=== PATIENT | female | born 1955 | race Caucasian/White ===

== ENCOUNTER 2017-01-04 14:25 | Emergency (ER) | payer MEDICARE, MEDICAID ==
[2017-01-04 14:48] VITALS: BP 131/86
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
== END 2017-01-04 15:35 | disposition home or self-care (01) ==
LOC: ER 14:25
DX: S50.11XA Contusion of right forearm, initial encounter (principal); W20.8XXA Other cause of strike by thrown, projected or falling object, initial encounter; Y93.E9 Activity, other interior property and clothing maintenance; Y92.009 Unspecified place in unspecified non-institutional (private) residence as the place of occurrence of the external cause; F41.9 Anxiety disorder, unspecified; J44.9 Chronic obstructive pulmonary disease, unspecified

== ENCOUNTER 2017-02-20 13:12 | Emergency (ER) | payer MEDICARE, MEDICAID ==
[2017-02-20 13:12] VITALS: BP 131/86
--- OUTSIDE RECORDS SUMMARY | 2017-02-20 13:19 | XMS REPORT | Continuity of Care Document ---
:1955 Author Organization [facility] ([facility]) Address [address] [place] [address] Phone [phone] Care Team Providers Name Role Phone Macy Cortez Primary Care Provider [phone] Source Comments This disclosure is being made pursuant to the Care Everywhere program, applicable federal and state laws, and may not contain all informaitonavailable regarding this patient.[facility] ([facility]) Active Allergies and Adverse Reactions No Active Allergies Current Medications Not on file Active Problems Problem Noted Date Trigger finger (acquired) 03/02/2005 Most Recent Encounters Date Type Specialty Providers Description 02/20/2017 Lab Requisition Pathology [facility], [facility] Dx: Neoplasm of breast Social History Tobacco Use Types Packs/Day Years Used Date Never Assessed Last Filed Vital Signs Vital Sign Reading Time Taken Blood Pressure - - Pulse - - Temperature - - Respiratory Rate - - Height 1.58 m (5' 2.2") 03/02/2005 2:00 PM CDT Weight 79.996 kg (176 lb 5.8 oz) 03/02/2005 2:00 PM CDT Body Mass Index 32.04 03/02/2005 2:00 PM CDT Oxygen Saturation - - Plan of Care Health Maintenance Due Date Last Done Comments HCV Screening 1955 Hepatitis B Vaccine (1 of 3 - Primary Series) 1955 Tdap Vaccine 1966 Lipid Disorder Screening 1973 Td Vaccine 1973 Cervical Cancer Screening 1985 Mammogram 1995 Colonoscopy 10/26/2005 Zoster Vaccine 2015 Influenza Vaccine: Seasonal (#1) 06/29/2016 Results from Last 3 Months Not on file
--- OUTSIDE RECORDS SUMMARY | 2017-02-20 13:19 | XMS REPORT | Summary of Care ---
:1955 Author Organization [facility] Address [address] [place] [address] Care Team Providers Name Role Phone Penny Campos Primary Care Physician Encounter Date(s): 01/07/17 - 01[facility]07/17 [facility], [address] [place], [place] [address] Discharge Disposition: 01 Discharged to Home or Self Care Attending Physician: AZEEM Melton Vital Signs No data available for this section Problem List No data available for this section Allergies, Adverse Reactions, Alerts Substance Reaction Severity Status Cipro imbalance Active Midrin imbalance Active Vicodin imbalance Active Medications ALPRAZolam 0.5 mg oral tablet 1 tab(s), Oral, TID, PRN for anxiety, 0 Refill(s), Start Date: 09/02/15 8:25:00 CDT Start Date: 09/02/15 Status: OrderedDaliresp 500 mcg oral tablet 1 tab(s), Oral, Daily, # 30 tab(s), 1 Refill(s), Start Date: 09/02/15 9:42:00 CDT, Pharmacy: [facility] [place], [place] Start Date: 09/02/15 Stop Date: 12/11/16 Status: Discontinuedlisinopril 10 mg oral tablet 1 tab(s), Oral, Daily, 0 Refill(s), Start Date: 09/02/15 8:25:00 CDT Start Date: 09/02/15 Status: OrderedoxyCODONE-acetaminophen 5 mg-325 mg oral tablet 1 tab(s), Oral, q6hr interval, PRN pain severe 8-10, 0 Refill(s), Start Date: 8:25:00 CDT Start Date: 09/02/15 Status: Orderedpantoprazole 20 mg oral delayed release tablet 1 tab(s), Oral, Daily, 0 Refill(s), Start Date: 09/02/15 8:26:00 CDT Start Date: 09/02/15 Status: OrderedProAir HFA 2 puff(s), Inhale, QID, PRN as needed for wheezing, 0 Refill(s), Start Date: 04/12 8:26:00 CDT Start Date: 09/02/15 Status: Orderedranitidine 150 mg oral tablet 1 tab(s), Oral, HS, 0 Refill(s), Start Date: 09/02/15 8:26:00 CDT Start Date: 09/02/15 Status: OrderedSpiriva Respimat 2.5 mcg/inh inhalation aerosol 2 puff(s), Inhale, Daily, # 1 EA, 3 Refill(s), Start Date: 12/11/16 13:57:15 DIRECTOR OF LAND ACQUISITION , Samples: 1, Pharmacy: [place], [place], [id number], 07/29/17 Start Date: 12/11/16 Stop Date: 04/10/17 Status: OrderedSpiriva Respimat 60 inhalation aerosol 2 puff(s), Inhale, Daily, # 1 EA, 3 Refill(s), Start Date: 09/02/15 9:42:00 CDT , Samples: 1, Pharmacy: [place], [place], [id number], 07/29/17 Start Date: 09/02/15 Stop Date: 12/11/16 Status: DiscontinuedSymbicort 160 mcg-4.5 mcg/inh inhalation aerosol 2 puff(s), Inhale, BID, 0 Refill(s), Start Date: 09/02/15 8:26:00 CDT Start Date: 09/02/15 Status: Ordered Results No data available for this section Immunizations No data available for this section Procedures No data available for this section Social History No data available for this section Assessment and Plan No data available for this section
--- OUTSIDE RECORDS SUMMARY | 2017-02-20 13:19 | XMS REPORT | Summary of Care ---
:1955 Author Organization [facility] Address [address] [place] [address] Care Team Providers Name Role Phone Penny Campos Primary Care Physician Encounter Date(s): 12/11/16 - 12/11/16 [facility], [address] [place], [place] [address] Discharge Diagnosis: Acute exacerbation of COPD Discharge Diagnosis: Solitary pulmonary nodule Discharge Disposition: 01 Discharged to Home or Self Care Attending Physician: AZEEM Melton Referring Physician: Macy Cortez MD Vital Signs Most recent to oldest [Reference Range]: 1 Temperature Tympanic [36.6-38.1 DegC] 37.4 DegC (12/11/16 1:29 PM) Temperature C to F 99.3 (12/11/16 1:29 PM) Peripheral Pulse Rate [60-100 bpm] 86 bpm (12/11/16 1:29 PM) Respiratory Rate [12-20 br/min] 14 br/min (12/11/16 1:29 PM) SpO2 95 % (12/11/16 1:29 PM) SpO2 Location Right hand (12/11/16 1:29 PM) Blood Pressure [90-130/60-90 mmHg] 124/68mmHg (12/11/16 1:29 PM) Mean Arterial Pressure, Cuff 87 mmHg (12/11/16 1:29 PM) Height/Length Measured 157.48 cm (12/11/16 1:29 PM) Weight Dosing 77.10 kg1 (12/11/16 1:31 PM) Weight Measured 77.1 kg (12/11/16 1:29 PM) BSA Measured 1.78 m2 (12/11/16 1:29 PM) Body Mass Index Measured 31.09 kg/m2 (12/11/16 1:29 PM) 1Result Comment: This result was because the dosing weight was either not entered or it is>30 days old. This result is based off: Weight Measured December 11, 2016 13:29:00 [employer] by Norbert Hernandez Problem List No data available for this [...] Refill(s), Start Date: 09/02/15 9:42:00 CDT, Pharmacy: [place], [place] Start Date: 09/02/15 Stop Date: 12/11/16 [...] 09/02/15 8:26:00 CDT Start Date: 09/02/15 Status: OrderedSolumedrol (office) 62.5 mg, IM, ONETIME, First Dose: 12/11/16 14:23:00 [employer], Stop Date: 12/11/16 14: 23:00 [employer], Diagnosis: Acute exacerbation of COPD Start Date: 12/11/16 Stop Date: 12/11/16 Status: CompletedSpiriva Respimat 2.5 mcg/inh inhalation aerosol 2 puff(s), Inhale, Daily, # 1 EA, 3 Refill(s), Start Date: 12/11/16 13:57:15 [employer] , Samples: 1, Pharmacy: [place], [place], [id number], 07/29/17 Start Date: 12/11/16 Stop Date: 04/10/17 Status: OrderedSpiriva Respimat 60 inhalation aerosol 2 puff(s), Inhale, Daily, # 1 EA, 3 Refill(s), Start Date: 09/02/15 9:42:00 CDT , Samples: 1, Pharmacy: [place], [place], [id number], 07/29/17 Start Date: 09/02/15 Stop Date: 12/11/16 [...]
== END 2017-02-20 13:24 | disposition home or self-care (01) ==
LOC: ER 13:12
DX: Z13.6 Encounter for screening for cardiovascular disorders (principal)

== ENCOUNTER 2017-07-22 07:03 | Day surgery (SDC) | payer MEDICARE, MEDICAID ==
[~2017-07-22 07:03] MED LIST: ACETAMINOPHEN 500 MG TABLET PO PRN; HYDROmorphone HCL 2 MG/ML VIAL IV PRN; MAG HYDROX/ALUMINUM HYD/SIMETH 30 ML UDC PO PRN; MAGNESIUM HYDROXIDE 30 ML UDC PO PRN; ONDANSETRON HCL/PF 2 MG/ML VIAL IV PRN; PROMETHAZINE HCL 25 MG in DEXTROSE 5 % IN WATER 50 ML IV PRN; RINGER'S SOLUTION,LACTATED 1,000 ML IV PRN; ZOLPIDEM TARTRATE 5 MG TABLET PO PRN; ceFAZolin SODIUM 1 GM VIAL IV PRN; diphenhydrAMINE HCL 50 MG/ML VIAL IV PRN; oxyCODONE HCL/ACETAMINOPHEN 1 TAB TABLET PO PRN
[2017-07-22] MEDS ORDERED: RINGER'S SOLUTION,LACTATED 1,000 ML IV ONE (07:45)
[2017-07-22] MEDS ORDERED: BUPIVACAINE HCL 50 ML VIAL IJ ONE (08:25)
[2017-07-22 09:39] VITALS: BP 125/74
--- NOTE | 2017-07-22 09:42 | OR ---
Operative Report - Dictated Report Narrative: Date: 07/22/2017 Physician: Barry Garcia M.D. In File Operator: Sohail Mendez PA-C Preoperative diagnosis: Right Carpal tunnel syndrome Postoperative diagnosis: Right Carpal tunnel syndrome Procedure: Revision open right carpal tunnel release Anesthesia: Rony block Complications: None Estimated blood loss: Minimal Tourniquet time: 25 Minutes at 275 mmHg Specimens: None Retained implants: None Drains: None Indications: Deborah Is a 61 year-old female who has been followed in my clinic with complaints of carpal tunnel syndrome. She had a previous endoscopic release about 15 years ago with initial improvement but a progressive return of her symptoms. Physical exam as well as diagnostic testing showed compression of the median nerve compatible with carpal tunnel syndrome. Conservative measures have failed including but not limited to activity modification, medications, and /or bracing. The risks, benefits, and alternatives were discussed in clinic. The risks being bleeding, infection, nerve, tendon, blood vessel injury, persistent pain, wound complications, weakness, palm pain, need for additional procedures, and persistent symptoms. Consent was obtained in the clinic. Procedure: After marking the correct extremity in the preoperative holding area, a timeout was performed in the operating room. IV antibiotics consisting of 2 g of Ancef were administered prior to the procedure. A well-padded tourniquet was applied to the operative upper arm. The arm was exsanguinated and the tourniquet was inflated to 275 mmHg. Rony block was then performed by the anesthesia provider without complication. Using Loupe magnification, a longitudinal incision was made in line with the longitudinal hypothenar crease, or approximately in line with the ring finger, from just distal to the wrist flexion crease and extending approximately 2.5 cm distally. Blunt dissection and hemostasis with bipolar cautery was carried out through the subcutaneous tissue and palmar fascia down to the level of the transverse carpal ligament. Ragnel retractors were used to retract the surrounding soft tissue and provide good visualization of the transverse carpal ligament. Inspection revealed a completely intact transverse carpal ligament indicating incomplete previous endoscopic release. The transverse carpal ligament was then sharply incised longitudinally with a 15 -blade scalpel. A Monument elevator was then slid underneath the transverse carpal ligament distally, protecting the median nerve, and the remaining distal portion of the transverse carpal ligament was sharply divided. This was then repeated proximally to divide the remaining proximal portion. Tenotomy scissors were used to divide any remaining transverse carpal ligament and palmar fascia distally being careful to avoid the superficial palmar arch. The distal forearm fascia was released ensuring that the median nerve was completely decompressed utilizing tenotomy scissors. The median nerve was then carefully inspected. Once it was felt that all the tissues overlying the median nerve were completely released, the wounds were thoroughly irrigated with saline. Tourniquet was deflated and hemostasis was obtained with pressure as well as bipolar cautery. Once bleeding had resolved and there was no excessive bleeding, the wounds were closed with interrupted 4-0 nylon. Xeroform , 4 x 4's, soft roll, and a well-padded dorsal short arm wrist splint was applied. The patient was awoken and transferred to the post-anesthesia care unit in stable condition. All sponge, needle, blade, and instrument counts were correct prior to closing the wounds. Additional 0.5% Marcaine without epinephrine was infused into the skin edges for pain control.
[2017-07-22] MEDS ORDERED: SENNOSIDES/DOCUSATE SODIUM 1 TAB TABLET PO SCH (21:00)
== END 2017-07-22 07:04 | disposition home or self-care (01) ==
LOC: AMB 07:03
PROVIDERS: ATTEND Orthopaedic Surgery
PROC: 01N50ZZ Release Median Nerve, Open Approach (ICD-10-PCS; principal; 2017-07-22 08:00)
DX: G56.01 Carpal tunnel syndrome, right upper limb (principal); I10 Essential (primary) hypertension; J45.20 Mild intermittent asthma, uncomplicated; J44.9 Chronic obstructive pulmonary disease, unspecified; K21.9 Gastro-esophageal reflux disease without esophagitis; Z87.891 Personal history of nicotine dependence; Z68.30 Body mass index [BMI] 30.0-30.9, adult

== ENCOUNTER 2020-04-03 15:51 | Inpatient (IN) ==
[2020-04-03] MEDS ORDERED: MORPHINE SULFATE 10 MG PO PRN (16:27)
[2020-04-03] MEDS ORDERED: ONDANSETRON HCL/PF 2 MG/ML VIAL IV PRN (16:32)
[2020-04-03] MEDS ORDERED: SCOPOLAMINE HYDROBROMIDE 1.5 MG PATC TD ONE ×2 (16:32→19:47)
[2020-04-03] MEDS ORDERED: POLYVINYL ALCOHOL 150 DROP BTL EACHEYE PRN (16:32)
[2020-04-03] MEDS ORDERED: BISACODYL 10 MG SUPP.RECT RC PRN (16:32)
[2020-04-03] MEDS ORDERED: ALBUTEROL SULFATE/IPRATROPIUM 3 ML NEBU IH PRN (16:32)
[2020-04-03] MEDS ORDERED: POLYETHYLENE GLYCOL 3350 17 GM PACKET PO PRN (16:35)
[2020-04-03] MEDS ORDERED: ACETAMINOPHEN 500 MG TABLET PO PRN (16:35)
[2020-04-03] MEDS ORDERED: MINERAL OIL 1 ENEMA BTL RC PRN (16:41)
[2020-04-03] MEDS ORDERED: SENNOSIDES 8.6 MG TABLET PO PRN (16:42)
--- NOTE | 2020-04-03 16:45 | HP ---
Chief Complaint - Chief Complaint Date of Service: 04/03/20 Time of Service: 16:44 Chief Complaint: breast cancer, restlessness History of Present Illness: Patient is currently receiving hospice benefits for end-stage breast cancer. She has been increasingly restless at home, which is very difficult for her daughter to handle. Daughter is trying to manage her needs alone, but her needs are more than she can provide. She was admitted for hospice respite. Her hospice nurse today also feels like she has actively dying. Since she may pass within 24 hours, she is admitted for hospice care. Medical History (Last Reviewed 04/03/20 @ 16:37 by Isis Phillips RN) Wrist pain, right (Acute) Weight loss (Acute) Upper respiratory infection (Acute) Trigger little finger of right hand (Acute) Patient presents for trigger fingers of her right little finger, left index finger. Patient has received prior injections with relief, would like to proceed with injections today. Discussed conservative versus surgical tr eatment. Patient agreed to continue with injections as long as they get relief. Patient received injections in her right little finger and left index finger. Both fingers actively trigger with flexion. Patient will continue activity as tolerated. She can call for follow-up as needed for continued injections versus surgical intervention. If any acute changes occur patient will return. Trigger index finger of left hand (Acute) Tobacco abuse (Acute) Shortness of breath (Acute) Neck pain (Acute) Headache (Acute) GERD (gastroesophageal reflux disease) (Acute) Flexor tenosynovitis of thumb (Acute) Essential hypertension (Acute) Cough (Acute) COPD (chronic obstructive pulmonary disease) with acute bronchitis (Acute) Mastodynia of left breast (Acute) Breast cancer (Acute) Onset Date: ~03/10/17 Bilateral carpal tunnel syndrome (Acute) Back pain (Acute) Asthma (Acute) Onset Date: ~11/28/13 Anxiety disorder (Acute) Anemia (Acute) Onset Date: ~10/1999 Colonoscopy refused Surgical History: Surgical History (Last Reviewed 04/03/20 @ 16:37 by Isis Phillips RN) H/O: hysterectomy Onset Date: ~2002 History of carpal tunnel release Onset Date: ~07/22/[address] Garcia Family History: Family History (Last Reviewed 03/14/20 @ 13:01 by Lida Hendrix CMA) Father , age 51 Myocardial infarction Mother , age 71 Agoraphobia with panic attacks Son Methamphetamine addiction Social History: (Last Reviewed 04/03/20 @ 16:37 by Isis Phillips RN) Social History: Marital status: Unknown lives independently: Yes household members: other current occupational status: disabled Highest education level completed: some college, no degree Service: No Tobacco: Smoking Status: Never smoker Alcohol: alcohol intake: former Substance Use: substance use type: does not use Dietary Habits: caffeine: Yes Type: coffee Review Of Systems (GEN) - Review of Systems Generalized/Overall Review: Present: No Symptoms Reported - Unable to obtain ROS due to mentation Immunizations: IMMUNIZATION HX Immunizations Up to Date Yes History of Influenza Vaccine No Hx Pneumococcal Vaccination No Allergies/Adverse Reactions: Allergies Allergy/AdvReac Type Severity Reaction Status Date / Time sumatriptan Allergy Severe "CAUSES Verified 04/03/20 16:41 THROAT TO CLOSE" sulfamethoxazole Allergy Intermediate INCREASED Verified 04/03/20 16:41 [From Bactrim] SOB doxycycline Allergy Mild Hives Verified 04/03/20 16:41 ciprofloxacin HCl AdvReac Mild Nausea Verified 04/03/20 16:41 [From Cipro] dichloralphenazone AdvReac Mild "FUZZY" Verified 04/03/20 16:41 [From MIDRIN] HEAD hydrocodone AdvReac Mild DIZZINESS Verified 04/03/20 16:41 tramadol AdvReac Mild N/V Verified 04/03/20 16:41 azithromycin [From Zithromax] AdvReac DOESNT WORK Verified 04/03/20 16:41 Home Medications: HOME MEDICATIONS Acetaminophen [Tylenol] 500 mg PO Q6H PRN 02/28/20 [Last Taken Unknown] Budesonide/Formoterol Fumarate [Symbicort] 2 puff INHALATION BID 02/28/20 [Last Taken Unknown] Pantoprazole Sodium 40 mg PO DAILY 02/28/20 [Last Taken Unknown] apixaban 5 mg tablet 5 mg PO BID 03/14/20 [Last Taken Unknown] polyethylene glycol 3350 17 gram oral powder packet 17 g PO DAILY PRN 03/14/20 [Last Taken Unknown] hydromorphone 2 mg tablet 4 mg PO Q2H PRN #90 tab 04/01/20 [Last Taken Unknown] Albuterol Sulfate [Ventolin HFA] 2 puff INHALATION Q2H PRN 04/03/20 [Last Taken Unknown] LORazepam [Ativan] 1 mg PO Q2H PRN 04/03/20 [Last Taken Unknown] Morphine Sulfate [Ms Contin] 60 mg PO BID 04/03/20 [Last Taken Unknown] Sennosides [Senna Lax] 8.6 mg PO BID PRN 04/03/20 [Last Taken Unknown] Sodium Phosphate,Randolph-Dibasic [Fleet Enema] 1 enema RC DAILY PRN 04/03/20 [Last Taken Unknown] morphine concentrate 100 mg/5 mL (20 mg/mL) oral solution 5 mg PO Q1H PRN #30 ml 04/03/20 [Last Taken Unknown] Exam - Exam Vital Signs: Vital Signs - Last Taken Temp 37.1 C 04/03/20 16:16 Resp 24 H 04/03/20 16:16 Constitutional: Present: Mild distress, Looks Older than stated age Respiratory: Present: decreased breath sounds, wheezing, other - wearing 2 L O2 via NC Cardiovascular/Chest: Present: tachycardia Extremity: Present: other - edema of entire left upper arm Neurologic: Present: other - moves arms and legs spontaneously Eye contact: Present: other - does not respond to questioning or make eye contact Assessment/Plan - Narrative Narrative: Patient has been receiving hospice benefits, and has been at home under the care of her daughter. Her hospice nurse feels like she has declined even from this morning. She is tachycardic and has very diminished breath sounds. It is possible she may pass within 24 hours. She does not interact and is not taking anything p.o. Will administer comfort care medicines, and place a Chapin. If morphine does not seem to be controlling her pain or she is getting it very frequently, can place a 25 mcg fentanyl patch. She had reportedly had increased agitation with alprazolam, but seems to be doing okay today with lorazepam. - Assessment/Plan (1) End of life care Problem: Acute (2) Breast cancer Problem: Chronic Qualifiers: Breast location: unspecified site of breast Estrogen receptor status: positive Patient sex: female Laterality: left Qualified Code(s): C50.912 - Malignant neoplasm of unspecified site of left female breast; Z17.0 - Estrogen receptor positive status [ER+] (3) COPD (chronic obstructive pulmonary disease) Problem: Chronic
[2020-04-03] MEDS: MORPHINE SULFATE 10 MG/0.5 ML SYRINGE PO PRN ×2 (18:32→19:50)
[2020-04-03] MEDS: LORAZEPAM 2 MG/ML ORAL.CONC PO PRN ×3 (19:00→22:55)
[2020-04-03] MEDS ORDERED: MORPHINE SULFATE 60 MG TABLET.SA PO SCH (21:00)
[2020-04-04] MEDS: MORPHINE SULFATE 10 MG/0.5 ML SYRINGE PO PRN ×16 (01:06→23:09)
[2020-04-04] MEDS: LORAZEPAM 2 MG/ML ORAL.CONC PO PRN ×5 (02:43→23:13)
[2020-04-04] MEDS: HALOPERIDOL LACTATE 2 MG/ML ORAL.CONC PO PRN ×3 (08:28→14:45)
[2020-04-04] MEDS ORDERED: fentaNYL 50 MCG PATCH.TD72 TD SCH (08:30)
--- NOTE | 2020-04-04 09:46 | PN ---
Subjective - Date and Time Seen Date: 04/04/20 Time: 08:00 Subjective Narrative: Per nursing staff, she seemed to improve shortly after shift change last night. She did require 5 doses of morphine and multiple doses of lorazepam. She again does not communicate with me this morning. Objective Objective Narrative: Unable to obtain ROS due to mentation - Vitals Vitals: Last Vital Signs Temp 37.1 C 04/03/20 16:16 Resp 24 H 04/03/20 16:16 Pulse Ox 92 L 04/03/20 19:46 - Exam Constitutional: Present: Looks Older than stated age Respiratory: Present: decreased breath sounds Cardiovascular/Chest: Present: tachycardia Extremity: Present: other - left upper arm edema Eye contact: Present: other - does not interact Cauti Physician Documentation - Urinary Catheter Management Urethral (Chapin) Date of Insertion: 04/03/20 Time of Insertion: 19:37 Assessment/Plan - Problems/Diagnosis (1) End of life care Problem: Acute Narrative: She required multiple doses of morphine overnight. We will start a 50 mcg fentanyl patch to see if that manages her pain better. She also seems to be restless, so encourage the use of Haldol. Her assessment today is essentially unchanged from yesterday afternoon. I anticipate her lifespan may be days to weeks. It is appropriate to make arrangements for end-of-life care at a facility, and appreciate case management assistance in this. (2) Breast cancer Problem: Chronic Qualifiers: Breast location: unspecified site of breast Estrogen receptor status: positive Patient sex: female Laterality: left Qualified Code(s): C50.912 - Malignant neoplasm of unspecified site of left female breast; Z17.0 - Estrogen receptor positive status [ER+] (3) COPD (chronic obstructive pulmonary disease) Problem: Chronic
[2020-04-05] MEDS: LORAZEPAM 2 MG/ML ORAL.CONC PO PRN ×5 (03:06→16:06)
[2020-04-05] MEDS: MORPHINE SULFATE 10 MG/0.5 ML SYRINGE PO PRN ×7 (06:45→20:48)
--- NOTE | 2020-04-05 08:28 | PN ---
Subjective - Date and Time Seen Date: 04/05/20 Time: 08:09 Subjective Narrative: Patient does not waken during exam. Per her nurse, she seems more comfortable. Less frequent doses of morphine and ativan were used overnight. Objective Objective Narrative: Unable to contribute due to mental status - Vitals Vitals: Last Vital Signs Temp 37.1 C 04/03/20 16:16 Resp 24 H 04/03/20 16:16 Pulse Ox 97 04/05/20 07:31 - Exam Constitutional: Present: No distress - does not waken for exam, Looks Older than stated age Respiratory: Present: no accessory muscle use - wearing NC at 2 L, decreased breath sounds, No wheezing Cardiovascular/Chest: Present: regular rate, rhythm Extremity: Present: other - 2+ left upper extremity edema Cauti Physician Documentation - Urinary Catheter Management Urethral ([place]) Date of Insertion: 04/03/20 Time of Insertion: 20:00 Assessment/Plan Plan Narrative: 50 mcg of fentanyl patch started yesterday and Ativan dose increased to 2 mg. She seems more comfortable this morning. I anticipate her lifespan is days to weeks, and appreciate case management assistance in finding her placement. She has been accepted at [facility] pending negative COVID test. This test was drawn yesterday, so anticipate results could return at any time. She has not been fully lucid since admission, but she has times of being more alert. There is no diet order in currently because she would not eat an entire tray, and I do not believe she could chew or swallow. However if she would like to eat or drink anything, this is completely appropriate. - Problems/Diagnosis (1) End of life care Problem: Acute (2) Breast cancer Problem: Chronic Qualifiers: Breast location: unspecified site of breast Estrogen receptor status: positive Patient sex: female Laterality: left Qualified Code(s): C50.912 - Malignant neoplasm of unspecified site of left female breast; Z17.0 - Estrogen receptor positive status [ER+] (3) COPD (chronic obstructive pulmonary disease) Problem: Chronic
[2020-04-05] MEDS ORDERED: ATROPINE SULFATE 50 DROP BTL SL PRN (17:05)
--- NOTE | 2020-04-05 21:48 | DS ---
Discharge Summary - Provider Admitting Clinician: aMrtha Dobbs - Date and Time Date of : 04/05/20 - Diagnosis/Cause of (1) End of life care Problems: Acute (2) Breast cancer Problems: Chronic (3) COPD (chronic obstructive pulmonary disease) Problems: Chronic - Summary Details (narrative): Patient with past medical history of end stage breast cancer, hypertension, COPD, anxiety was admitted for end of life care. She had been receiving hospice benefits through [facility] hospice. She had been at home, primarily under the care of her daughter. She became increasingly restless at home, and her needs became more than her daughter could provide. Initially it was felt she may pass within 24 hours of admission. She seemed to slightly improve a bit after admission, and arrangements were started for her to go to the [facility]. Her pain meds and anxiolytics were adjusted, and she was more comfortable than she had been prior to admission. COVID test done for placement, and was negative. She passed on the evening of 04/05/2020. Procedures Performed: none - Additional Data Practitioner(Attending/PCP) notified: Yes Was code activated: No Hospice patient: Yes
[2020-04-06] MEDS ORDERED: SCOPOLAMINE HYDROBROMIDE 1.5 MG PATC TD SCH (18:00)
[2020-04-06 21:07] VITALS: BP 0/0
== END 2020-04-05 21:25 | disposition expired | DRG 951 ==
LOC: MS 15:51
PROVIDERS: ADMIT Family Medicine; ATTEND Family Medicine